=== PATIENT | female | born 1965 | race Hispanic/Latino ===

== ENCOUNTER 2016-09-12 12:03 | Emergency (ER) | payer BC ==
[2016-09-12 12:26] VITALS: BP 157/87
--- NOTE | 2016-09-12 15:57 | Emergency Department Report ---
ED Fall HPI - General Chief Complaint: Fall Stated Complaint: FALL Time Seen by Provider: 09/12/16 15:45 Source: patient, family Mode of arrival: Ambulatory - History of Present Illness Initial Comments: Patient here reported that she slipped and fell to the floor twice in the last 2 days. She said she slipped last Monday because she was rationing she slipped over 4 according hit the back of her head but she denies any headache or neck pain at present. She denies any dizziness or blurred vision. She said she slipped again and tripped and hit her right rib and shoulder. She has rotator cuff injury and right shoulder also. She says she took Motrin and Percocet at home and she came here to see if she has any rib fracture. Patient has a history of fibromyalgia and MS and takes multiple medication. She denies any nausea or vomiting. denies any back pain. She reports that she did not hit her head on the last 2 falls and denies any loss of consciousness. She says she had a knot on the back of her head from where she fell last Monday but it's not there anymore. She denies taking any blood thinners. Complaint: fall Onset/Timin -: days(s) Fall From: standing When Fall Occurred: recurrent falls Fall Witnessed: yes, by family Place Fall Occurred: home Loss of Consciousness: none Prolonged Down Time?: no Symptoms Prior to Fall: none Location: chest (at right ribs.) Severity: moderate Severity scale (0 -10): 5 Quality: aching Context: tripped/slipped Associated Symptoms: denies. denies: headache, neck pain, numbness, weakness, chest paint, shortness of breath, abdominal pain, hematuria, unable to walk, lightheaded, vertigo, confusion - Related Data Allergies Allergy/AdvReac Type Severity Reaction Status Date / Time amoxicillin AdvReac Anaphylaxis Verified 09/12/16 12:32 ciprofloxacin [From Cipro] AdvReac Vomiting Verified 09/12/16 12:32 ciprofloxacin HCl AdvReac Vomiting Verified 09/12/16 12:32 [From Cipro] gabapentin AdvReac Hives Verified 09/12/16 12:32 hydromorphone HCl AdvReac Hives Verified 09/12/16 12:32 [From Dilaudid] morphine AdvReac Hives Verified 09/12/16 12:32 nalbuphine HCl [From Nubain] AdvReac Hives Verified 09/12/16 12:32 naproxen AdvReac Hives Verified 09/12/16 12:32 pregabalin [From Lyrica] AdvReac Hives Verified 09/12/16 12:32 ED Review of Systems ROS: Stated complaint: FALL Other details as noted in HPI Comment: All other systems reviewed and negative Constitutional: denies: chills, fever Respiratory: no symptoms reported Cardiovascular: denies: chest pain, palpitations, edema, syncope Gastrointestinal: denies: abdominal pain, nausea, vomiting, diarrhea Musculoskeletal: arthralgia (rib pain). denies: back pain Skin: denies: rash Neurological: denies: headache, weakness, numbness, paresthesias, confusion, abnormal gait, vertigo ED Past Medical Hx - Past Medical History Previous Medical History?: Yes Hx Hypertension: Yes Additional medical history: MS, fibromyalgia - Surgical History Past Surgical History?: Yes Hx Cholecystectomy: Yes Hx Appendectomy: Yes Additional Surgical History: right shoulder, both feet - Family History Family history: hypertension - Social History Smoking Status: Current Every Day Smoker Substance Use Type: None ED Physical Exam - General Limitations: No Limitations General appearance: alert, in no apparent distress - Head Head exam: Present: atraumatic, normocephalic, normal inspection - Expanded Head Exam Expanded Head exam: Absent: laceration, abrasion, contusion, hematoma, racoon eyes, wilkinson's sign, general tenderness, tenderness of temporal artery, CSF rhinorrhea , CSF otorrhea - Eye Eye exam: Present: normal appearance, PERRL, EOMI. Absent: periorbital swelling , periorbital tenderness Pupils: Absent: normal accommodation - ENT ENT exam: Present: normal exam, normal orophraynx, mucous membranes moist, TM's normal bilaterally, normal external ear exam - Neck Neck exam: Present: normal inspection, full ROM. Absent: tenderness, meningismus, lymphadenopathy - Expanded Neck Exam Expanded Neck exam: Absent: tenderness, midline deformity, anterior neck swelling, tracheal deviation - Respiratory Respiratory exam: Present: normal lung sounds bilaterally, other (tenderness to palpate to right rib cage anteriorly and posteriorly.). Absent: respiratory distress, chest wall tenderness - Cardiovascular Cardiovascular Exam: Present: regular rate, normal rhythm, normal heart sounds - GI/Abdominal GI/Abdominal exam: Present: soft, normal bowel sounds. Absent: distended, tenderness, guarding, rebound, rigid - Extremities Exam Extremities exam: Present: normal inspection, full ROM, normal capillary refill. Absent: tenderness, pedal edema, joint swelling, calf tenderness - Expanded Upper Extremity Exam Right General: Present: normal inspection. Absent: laceration, abrasion, nail injury (#), foreign body, amputation, avulsion Shoulder Exam: Present: normal inspection, full ROM. Absent: tenderness, swelling, abrasion, laceration, ecchymosis, deformity, crepidus, dislocation, erythema, tenderness over AC joint Upper Arm exam: Present: normal inspection, full ROM. Absent: tenderness, swelling, abrasion, laceration, ecchymosis, deformity, crepidus, dislocation, erythema Elbow exam: Present: normal inspection, full ROM. Absent: tenderness, swelling , abrasion, laceration, ecchymosis, deformity, crepidus, dislocation, erythema, effusion, pain w/ pronation/supination, tenderness over radial head Forearm Wrist exam: Present: normal inspection, full ROM. Absent: tenderness, swelling, abrasion, laceration, ecchymosis, deformity, crepidus, dislocation, erythema, tenderness over anatomical snuff box, pain with axial thumb loading Hand Wrist exam: Present: normal inspection, full ROM. Absent: tenderness, swelling, abrasion, laceration, ecchymosis, deformity, crepidus, dislocation, erythema, amputation, nail avulsion, subungual hematoma Neuro motor exam: Present: wrist extension intact, thumb opposition intact, thumb IP flexion intact, thumb adduction intact, fingers 2-5 abduction intact Neurosensory exam: Present: 2-point discrimination, radial nerve intact, ulnar nerve intact, median nerve intact Vascular: Present: normal capillary refill, radial pulse, brachial pulse, ulnar pulse. Absent: vascular compromise, Pallo, pulse deficit radial art, pulse deficit ulnar art, pulse deficit brachial art - Back Exam Back exam: Present: normal inspection, full ROM. Absent: tenderness, CVA tenderness (R), CVA tenderness (L), muscle spasm, paraspinal tenderness, vertebral tenderness, rash noted - Expanded Back Exam Expanded Back exam: Absent: saddle anesthesia Back exam: Negative Straight Leg Raising: Left, Right - Neurological Exam Neurological exam: Present: alert, oriented X3, normal gait, reflexes normal. Absent: motor sensory deficit - Expanded Neurological Exam Expanded Neurological exam: Absent: innattentive, memory loss-remote event, memory loss- recent event, ataxia, receptive aphasia, expressive aphasia, total aphasia, tremor, protecting the airway Patient oriented to: Present: person, place, time Speech: Present: fluid speech Cranial nerves: EOM's Intact: Normal, Gag Reflex: Normal, Nystagmus: Normal, Facial Sensation: Normal Cerebellar function: Romberg: Normal Upper motor neuron: Pronator Drift: Normal, Sensory Extinction: Normal Sensory exam: Upper Extremity Light Touch: Normal, Upper Extremity Temperature: Normal, UE 2 Point Discrimination: Normal, Lower Extremity Light Touch: Normal, Lower Extremity Temperature: Normal, LE 2 Point Discrimination: Normal Motor strength exam: RUE: 5, LUE: 5, RLE: 5, LLE: 5 DTR: bicep (R): 2+, bicep (L): 2+, tricep (R): 2+, tricep (L): 2+, knee (R): 2+ , knee (L): 2+, ankle (R): 2+, ankle (L): 2+ Best Eye Response (Van): (4) open spontaneously Best Motor Response (Van): (6) obeys commands Best Verbal Response (Van): (5) oriented Van Total: 15 - Psychiatric Psychiatric exam: Present: normal affect, normal mood - Skin Skin exam: Present: warm, dry, intact, normal color. Absent: rash ED Course Vital Signs 09/12/16 09/12/16 12:22 16:56 Temperature 98.5 F Pulse Rate 99 H Respiratory 16 22 Rate Blood Pressure 157/87 O2 Sat by Pulse 99 Oximetry - Reevaluation(s) Reevaluation #1: 09/12/16 17:46 Patient given Percocet 2 tablets in emergency room which relieved her pain. ED Medical Decision Making - Radiology Data Radiology results: report reviewed X-ray right rib detail revealed no rib fractures or chest abnormality. - Medical Decision Making ED course: I discussed the patient that her x-ray of right rib revealed no acute fracture or dislocation. I encouraged her to follow-up with her neurologist for recurrent falls because she has MS. I also encouraged her to follow up with her orthopedic doctor for shoulder pain. Patient is neurologically intact and she has full range of motion to her right shoulder. She was given Percocet 5/325 2 tablets in emergency room which she said relieved her pain. Pt discharged home in stable condition and she takes narcotics at home so I told her she can continue to take pain medication as prescribed by her doctor. Critical care attestation.: If time is entered above; I have spent that time in minutes in the direct care of this critically ill patient, excluding procedure time. ED Disposition Clinical Impression: Rib pain on right side, Arthralgia of shoulder region, right Fall, accidental Qualifiers: Encounter type: initial encounter Qualified Code(s): W19.XXXA - Unspecified fall, initial encounter Disposition: DISCHARGED TO HOME OR SELFCARE Is pt being admited?: No Does the pt Need Aspirin: No Condition: Stable Instructions: Fall Prevention (ED), Arthralgia (ED) Additional Instructions: Please follow-up with your neurologist regarding multiple falls. Please follow up with the orthopedic doctor regarding right shoulder pain Referrals: LETTY VAZQUEZ MD [Primary Care Provider] - 2-3 Days Your, Othopedist [Other] - 09/16/16 Your, Neurologist [Other] - 2-3 Days Forms: Accompanied Note, Work/School Release Form(ED)
[2016-09-12] MEDS ORDERED: PERCOCET 5/325 PO ONE (16:20)
--- NOTE | 2016-09-12 16:44 | XRay Report ---
RIB RADIOGRAPHS WITH CHEST VIEW INDICATION: Fall, rib pain. COMPARISON: 06/27/2007 CXR. FINDINGS: Frontal chest as also AP and oblique radiographs to evaluate right ribs, 4 projections demonstrate normal cardiomediastinal silhouette. Clear lungs without effusions, CHF or pneumothorax. Right shoulder postsurgical changes. Probable cholecystectomy clips. Multilevel spinal spondylosis. Specifically, no definite or significantly displaced right rib fracture identified. CONCLUSION: No acute right rib or chest radiographic abnormality with few incidental findings, as described. Please note that some acute rib fractures may be radiographically occult. Thank you for the opportunity to participate in this patient's care.
== END 2016-09-12 17:58 | disposition home or self-care (01) ==
LOC: ED 12:03
DX: R07.81 Pleurodynia (principal); M25.511 Pain in right shoulder; I10 Essential (primary) hypertension; F17.200 Nicotine dependence, unspecified, uncomplicated; Z90.49 Acquired absence of other specified parts of digestive tract; W01.0XXA Fall on same level from slipping, tripping and stumbling without subsequent striking against object, initial encounter; Y93.9 Activity, unspecified; Y92.9 Unspecified place or not applicable; Y99.9 Unspecified external cause status
CPT/HCPCS: 99283